=== PATIENT | female | born 1970 | race Caucasian/White ===

== ENCOUNTER 2024-09-04 07:40 | Emergency (ER) | payer MEDICAID ==
[~2024-09-04] VITALS: Ht 175.3 cm; Wt 77.1 kg
[2024-09-04 07:43] VITALS: TEMP 97.4
--- NOTE | 2024-09-04 07:46 | Physician Documentation ---
History of Present Illness ~ Chief Complaint: Bloody Stools Stated Complaint: VOMITING AND BLOOD IN STOOL Time Seen by MD: 07:46 Source: patient HPI 54-year-old female, history of diverticulitis, presenting with abdominal pain and bloody stool. She tells me her symptoms started about 5 days ago. Initially she had abdominal cramping and thought she maybe had food poisoning. She then had bright red bloody stools. The last episode was 4 days ago. Since that time she continues to have abdominal pain. It is generalized, deep, and radiates through to her back. Nothing makes it better. She reports some intermittent nausea and ge neral fatigue. She could not sleep last night due to the pain. She reports subjective fevers and chills. No respiratory symptoms or chest pain. No acid reflux symptoms. No history of peptic ulcer disease. She is not on blood thinners. No urinary symptoms. No abdominal surgeries. She is not a local resident. Medication Reconciliation Allergies: Coded Allergies: No Known Allergies (Unverified , 09/04/24) Scheduled Ciprofloxacin HCl (Cipro), 1 TAB PO Q12H Metronidazole* (Flagyl*), 1 TAB PO Q8H Scheduled PRN Hydrocodone Bit/Acetaminophen 5/325 MG (Thorndale 5/325 MG), 1 TAB PO TID PRN PRN for pain Past Medical History Past Medical History: Diverticulosis Review of Systems Constitutional: Reports: fever Gastrointestinal: Reports: abdominal pain, nausea, rectal bleeding; Denies: vomiting Physical Exam Vital Signs: Temperature: 97.4, Source: Temporal, Heart Rate: 69, Respiratory Rate: 15, BP: 122/71, Pulse Oximetry: 97, Weight: 77.140 Physical Exam General: This is a pleasant but tired appearing middle-aged female, not in distress HEENT: Atraumatic, oropharynx is moist Heart: Regular rate and rhythm, normal-appearing peripheral perfusion Lungs: normal work of breathing, normal oxygen saturation on room air Abdomen: Soft, nondistended. The patient has mild generalized discomfort on palpation but no focal significant tenderness, no peritoneal findings Back: The patient has generalized tenderness on palpation of the mid back including over the thoracic spine and paraspinal muscles, left worse than right. Mild discomfort with CVA percussion bilateral. Extremities: Warm and well-perfused Neuro: Alert and oriented, no focal deficits Psychiatric: Appears tired but is cooperative with exam Progress Results/Orders Results/Orders Orders - MIGUE BARTH MD Ct Abdomen Pelvis (09/04/24 08:52) Cult Urine + [facility] Ct (09/04/24 08:54) Completed Orders - MIGUE BARTH MD Hcg, Ur Ql (09/04/24 07:46) Cbc/Diff (09/04/24 07:46) BMP (09/04/24 07:46) Lipase (09/04/24 07:46) CMP (09/04/24 07:46) Pt Inr (09/04/24 07:47) Ct Abdomen Pelvis (09/04/24 08:52) Acetaminophen 325mg Tablet (Tylenol Tabl (09/04/24 08:25) Iohexol 300mg/Ml 100ml Inj. (Omnipaque-3 (09/04/24 08:41) Ua W/Microscopic, Cult If Ind (09/04/24 08:05) Ciprofloxacin Tablet (Cipro Tablet) (09/04/24 09:50) Metronidazole Tablet (Flagyl Tablet) (09/04/24 09:50) Hydrocodone/Apap 5/325mg Tab (Thorndale 32 (09/04/24 09:50) Vital Signs 09/04/24 09/04/24 09/04/24 09/04/24 07:43 08:07 08:58 09:58 Temp 97.4 Pulse 69 54 Resp 15 17 18 18 B/P (MAP) 122/71 113/74 (87) Pulse Ox 97 100 O2 Flow Rate 0 09/04/24 10:03 Pulse 64 Resp 18 B/P (MAP) Pulse Ox 98 Laboratory Tests Test 09/04/24 08:05 09/04/24 08:07 Urine Specimen Description Cln catch midstream Urine Color Yellow Urine Clarity Clear Urine pH 6.0 Urine Specific Cassandra <=1.005 Urine Protein Negative Urine Glucose (UA) Negative Urine Ketones Trace H Urine Occult Blood Trace-intact Urine Nitrite Negative Urine Bilirubin Negative Urine Urobilinogen 0.2 Urine Leukocyte Esterase Trace H Urine RBC 3-10 Urine WBC 5-10 H Urine Squamous Epithelial Cells Few Urine Bacteria None seen Urine Mucus Few Urine Culture Indicated Indicated Volume Urine Centrifuged 10 ml Urine HCG, Qualitative Negative Urine Comment White Blood Count 6.3 Red Blood Count 4.40 Hemoglobin 13.0 Hematocrit 37.9 Mean Corpuscular Volume 86.0 Mean Corpuscular Hemoglobin 29.6 Mean Corpuscular Hemoglobin Concent 34.4 Red Cell Distribution Width 13.7 Platelet Count 273 Mean Platelet Volume 6.8 L Neutrophils (%) (Auto) 58.7 Lymphocytes (%) (Auto) 29.0 Monocytes (%) (Auto) 10.1 Eosinophils (%) (Auto) 1.7 Basophils (%) (Auto) 0.5 Neutrophils # (Auto) 3.7 Lymphocytes # (Auto) 1.8 Monocytes # (Auto) 0.6 Eosinophils # (Auto) 0.1 Basophils # (Auto) 0.0 CBC Comment Prothrombin Time 10.7 INR International Normalized Ratio 1.0 Coagulation Comments Sodium Level 139 Potassium Level 3.8 Chloride Level 104 Carbon Dioxide Level 28.6 Anion Gap 6 L Blood Urea Nitrogen 13 Creatinine 0.84 Estimated GFR/1.73 m2 70 BUN/Creatinine Ratio 15.5 Glucose Level 92 Calcium Level 8.8 Total Bilirubin 0.8 Aspartate Amino Transf (AST/SGOT) 21 Alanine Aminotransferase (ALT/SGPT) 26 Alkaline Phosphatase 74 Total Protein 6.9 Albumin 4.1 Globulin 2.8 Albumin/Globulin Ratio 1.5 Lipase 31 Chemistry Comments Microbiology Date/Time Source Procedure Growth Status 09/04/24 08:54 Urine Clean Catch Midstream Urine Culture - Preliminary Culture received. Resulted EKG/XRAY/CT/US/VASC/MRI CT : Impression I personally reviewed the CT scan, and this shows acute diverticulitis with inflammation and stranding in the left lower quadrant, but no bowel obstruction or obvious abscess Medical Decision Making Additional info obtained from: old records Findings Reviewed the patient's medical record, there are no previous visits or laboratory testing in our system Diff Dx GI Bleed:Consideration: Include: Blood loss anemia, Diverticulosis, Diverticulitis, Esophageal varicies, Esophagitis, Gastritis, Inflammatory BD, PUD Additional Comments The patient presents with abdominal pain and bloody stool. On exam she does not have peritoneal findings, has overall normal vital signs. Her laboratory testing is grossly unremarkable, no acute anemia. His CT scan of the abdomen shows uncomplicated diverticulitis. Overall this appears consistent with her symptoms and exam. She will be treated with antibiotics and other symptomatic treatment including dietary changes. She felt comfortable returning home with this plan. Overall no indication for admission at this time. Return precautions given. Departure Time of Disposition: 09:51 Disposition: 01 HOME / SELF CARE / HOMELESS Impression: Primary Impression: Diverticulitis Additional Impression: Abdominal pain Condition: Improved Discharge Instructions: Diverticulitis Referrals: NO PRIMARY CARE PROVIDER (PCP) Prescriptions Hydrocodone Bit/Acetaminophen 5/325 MG ([place]orn[place] 5/325 MG) 5 Mg/325 Mg Tablet 1 TAB PO TID PRN PRN for pain for 3 Days, #8 TAB Prov: MIGUE BARTH MD 09/04/24 Metronidazole* (Flagyl*) 500 Mg Tablet 1 TAB PO Q8H for 7 Days, #21 TAB Prov: MIGUE BARTH MD 09/04/24 Ciprofloxacin HCl (Cipro) 500 Mg Tablet 1 TAB PO Q12H for 7 Days, #14 TAB Prov: MIGUE BARTH MD 09/04/24 Education Educated: Patient Educated regarding: diagnosis, treatment, need for follow up Signature Scribe Signature: na Attestation: MIGUE Villagran MD September 04, 2024 07:46
[2024-09-04 08:19] LABS: BASOPHILS % (AUTO) 0.5 % (0-1); EOSINOPHILS # (AUTO) 0.1 X10'3 (0-0.9); EOSINOPHILS % (AUTO) 1.7 % (0-6); HEMATOCRIT 37.9 % (35.0-45.0); LYMPHOCYTES # (AUTO) 1.8 X10'3 (1.1-4.8); MEAN CORPUSCULAR HEMOGLOBIN 29.6 PG (27.0-31.0); MEAN CORPUSCULAR HGB CONC 34.4 g/dL (33.0-36.5); MEAN PLATELET VOLUME 6.8 FL (7.4-10.4); MONOCYTES # (AUTO) 0.6 X10'3 (0-0.9); MONOCYTES % (AUTO) 10.1 % (2-12); NEUTROPHILS # (AUTO) 3.7 X10'3 (1.8-7.7); NEUTROPHILS % (AUTO) 58.7 % (42-75); PLATELET COUNT 273 X10'3 (140-440); RED CELL DISTRIBUTION WIDTH 13.7 % (11.5-14.5); WHITE BLOOD COUNT 6.3 X10'3 (4.5-11.0)
[2024-09-04 08:31] LABS: PROTHROMBIN TIME 10.7 SECONDS (9.0-12.0)
[2024-09-04 08:33] LABS: URINE HCG NEGATIVE (NEG)
[2024-09-04 08:34] LABS: ALANINE AMINOTRANSFERASE 26 U/L (12-78); ALBUMIN 4.1 G/DL (3.4-5.0); ALBUMIN/GLOBULIN RATIO 1.5 (1.1-1.5); ALKALINE PHOSPHATASE 74 IU/L (46-116); ANION GAP 6 (8-16); ASPARTATE AMINO TRANSFERASE 21 U/L (10-37); BILIRUBIN,TOTAL 0.8 MG/DL (0.1-1.0); BLOOD UREA NITROGEN 13 MG/DL (7-18); BUN/CREATININE RATIO 15.5 (10.0-20.0); CALCIUM 8.8 MG/DL (8.5-10.1); CHLORIDE 104 MMOL/L (99-107); CREATININE 0.84 MG/DL (0.40-0.90); GLUCOSE 92 MG/DL (70-104); LIPASE 31 U/L (16-77); POTASSIUM 3.8 MMOL/L (3.5-5.1); SODIUM 139 MMOL/L (135-145); TOTAL CARBON DIOXIDE 28.6 MMOL/L (24-32); TOTAL PROTEIN 6.9 G/DL (6.4-8.2); eCRCL 78 ML/MIN; eGFR 70 ML/MIN
[2024-09-04] MEDS: acetaminophen 325mg tablet PO ONE (08:35)
[2024-09-04 08:40] LABS: BILIRUBIN,URINE NEGATIVE (Neg); CLARITY,URINE CLEAR (Clear); COLOR,URINE YELLOW (Yellow); GLUCOSE, URINE NEGATIVE (Neg); KETONES,URINE TRACE mg/dl (Neg); LEUKOCYTE ESTERASE ,URINE TRACE (Neg); NITRITES, URINE NEGATIVE (Neg); OCCULT BLOOD,URINE TRACE-INTACT (Neg); PROTEIN,URINE NEGATIVE (Neg); UROBILINOGEN,URINE 0.2 E.U/dL (0.2-1.0)
[2024-09-04] MEDS ORDERED: iohexol 300mg/ml 100ml inj. ONE (08:41)
[2024-09-04 08:52] LABS: UA COLLECTION TYPE CLN CATCH MIDSTREAM
[2024-09-04 08:54] LABS: BACTERIA,URINE NONE SEEN /HPF (Neg); MUCUS STRANDS FEW /LPF (Neg); SQUAMOUS EPITHELIAL CELL,UR FEW /LPF (FEW)
[2024-09-04 08:58] VITALS: BP 113/74
--- NOTE | 2024-09-04 09:33 | RADIOLOGY REPORT ---
Exam: CT CT ABDOMEN PELVIS W/ IV CONTRAST History: generalized abd pain to back, blood stools Comparison Study: None Technique: Multidetector spiral CT of the abdomen was performed from lung bases to pubic symphysis. A xial imaging was performed with intravenous contrast following the uneventful administration of 100 m l Omnipaque 300. Coronal and sagittal multiplanar reformats were obtained from the axial data set by the technologist. Radiation Dose : 1. Abdomen/Pelvis: CTDIvol 28.8 mGy, DLP 1528 mGy*cm. Findings: Lung Bases: Lung bases are clear. Visualized portions of the heart and pericardium are unremarkable. Liver: The liver is normal in size. No focal lesions. Gallbladder and Biliary Tree: The gallbladder is unremarkable. No intrahepatic or extrahepatic biliar y ductal dilatation. Spleen: Unremarkable Pancreas: The pancreas enhances normally and there are no focal lesions. The main pancreatic duct is not dilated Adrenal Glands: Unremarkable Kidneys: Kidneys enhance symmetrically. No calculi or hydronephrosis. GI tract: The stomach is grossly normal in appearance.. No evidence of small bowel wall thickening or abnormal dilatation to suggest bowel obstruction. Sigmoid diverticulosis with wall thickening and fa t stranding consistent with acute sigmoid diverticulitis. Normal appendix. Peritoneum/mesentery/retroperitoneum. No evidence of free intraperitoneal air. No ascites. No evidenc e of suspicious lymphadenopathy. Abdominal Wall: Unremarkable. Vasculature: Abdominal aorta and main branches are unremarkable. Normal vascular enhancement. Urinary Bladder: Grossly unremarkable for degree of distention. Pelvic Organs: Unremarkable Musculoskeletal: No aggressive focal bony lesions, acute fractures or dislocation. IMPRESSION: 1. Acute uncomplicated sigmoid diverticulitis.
[2024-09-04] MEDS ORDERED: METR-159 PO (09:54)
[2024-09-04] MEDS ORDERED: CIPR-259 PO (09:54)
[2024-09-04] MEDS ORDERED: HYDR-3965 PO (09:55)
[2024-09-04] MEDS: ciprofloxacin 250mg tablet PO ONE (09:58)
[2024-09-04] MEDS: metroNIDAZOLE 500mg tablet PO ONE (09:58)
[2024-09-04] MEDS: HYDROcodone/acetaminophen 5mg/325mg tablet PO ONE (09:58)
[2024-09-04 10:03] VITALS: PULSE 64; RESP 18; O2SAT 98
== END 2024-09-04 10:04 | disposition home or self-care (01) ==
LOC: ER 07:41
DX: K57.33 Diverticulitis of large intestine without perforation or abscess with bleeding (principal)
CPT/HCPCS: 36415; 74177; 80053; 81001; 81025; 83690; 85025; 85610; 87088; 99285; J7030; Q9967